=== PATIENT | male | born 2000 | race Caucasian/White ===

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

== ENCOUNTER 2022-10-02 08:06 | Emergency (ER) | payer OTHER ==
[~2022-10-02] VITALS: Ht 172.7 cm; Wt 59.0 kg
[~2022-10-02 08:06] MED LIST: ZITHROMAX500 MG PO
[2022-10-02] MEDS ORDERED: DIVALPROEX SOD250 M1 PO (08:35)
[2022-10-02] MEDS ORDERED: BUPROPION XL450 MG PO (08:36)
== END 2022-10-02 15:37 | disposition home or self-care (01) ==
LOC: ER 08:06
DX: F12.13 Cannabis abuse with withdrawal (principal)